=== PATIENT | female | born 1950 | race Caucasian/White ===

== ENCOUNTER → 2017-08-20 | Outpatient (CLI) | payer BC ==
--- NOTE | 2017-08-20 14:34 | DIAGNOSTIC IMAGING REPORT ---
RIGHT KNEE INCLUDING BILATERAL STANDING AP VIEWS (4 VIEWS) CLINICAL HISTORY: RIGHT KNEE PAIN COMPARISON: None DISCUSSION: Bilateral standing AP views reveal moderate to severe bilateral osteoarthritic changes with bilateral medial joint compartment narrowing. There is bilateral chondrocalcinosis. There are subchondral cystic changes present within the lateral tibial plateau. There are no acute fractures. There are prominent dorsal patellar spurs. IMPRESSION: 1. No acute fractures 2. Moderately advanced osteoarthritic changes. 3. Chondrocalcinosis Electronically signed by: Chip Lopez M.D. 08/20/2017 2:32 PM Dictated Date/Time: 08/20/2017 2:30 PM
== END | disposition home or self-care (01) ==
LOC: C.RDSM 14:30
PROVIDERS: ATTEND Physician Assistant
DX: M25.561 Pain in right knee (principal)

== ENCOUNTER → 2017-09-04 | Outpatient (CLI) | payer BC ==
--- NOTE | 2017-09-04 12:11 | DIAGNOSTIC IMAGING REPORT ---
C-SPINE ROUTINE 4 OR 5 VIEWS CLINICAL HISTORY: 67 years-old Female presenting with ANESTHESIA OF SKIN, bilateral hand numbness for one month. TECHNIQUE: Lateral, bilateral oblique, frontal, and open-mouth odontoid views of the cervical spine were obtained. COMPARISON: None. FINDINGS: Slight straightening of normal cervical lordosis likely positional. Vertebral bodies maintain normal height and alignment. Intervertebral disc heights preserved. Disc osteophyte complexes noted to varying degrees from C3-4 through C6-7. Mild posterior bony spurring noted at C4-5. No significant osseous neural foraminal narrowing is apparent. No radiographic evidence of fracture or subluxation. The lateral masses of C1 articulate normally with C2. No prevertebral soft tissue swelling. IMPRESSION: Mild multilevel degenerative changes with posterior bony spurring at C4-5. No radiographic evidence of osseous neural foraminal narrowing. Electronically signed by: Zeyad Pal M.D. 09/04/2017 12:09 PM Dictated Date/Time: 09/04/2017 12:08 PM
== END | disposition home or self-care (01) ==
LOC: C.RADBC 11:23
PROVIDERS: ATTEND Family Medicine
DX: R20.0 Anesthesia of skin (principal)

== ENCOUNTER → 2018-07-01 | Outpatient (CLI) | payer BC ==
--- NOTE | 2018-07-01 16:42 | DIAGNOSTIC IMAGING REPORT ---
R KNEE 4 OR MORE CLINICAL HISTORY: 68 years-old Female presenting with RIGHT KNEE PAIN. TECHNIQUE: Frontal view of the bilateral knees in standing position as well as sunrise, tunnel, and lateral views of the right knee were obtained. COMPARISON: 08/20/2017. FINDINGS: Frontal standing view of the bilateral knees demonstrates medial joint space loss bilaterally are in the right knee. Chondrocalcinosis is also evident bilaterally as well as osteophytosis in both medial and lateral compartments. No acute fracture is grossly evident in the left knee. The right knee demonstrates specifically tricompartmental exuberant osteophytosis. There is near krwi-os-[id number] appearance of medial joint space loss. No evidence of a knee joint effusion. No acute fracture or malalignment. No radiographic soft tissue abnormality. IMPRESSION: 1. Advanced tricompartmental degenerative changes of the right knee with similar though slightly less severe degenerative change in the left knee. This has minimally progressed in the left knee since the prior exam. 2. No acute osseous injury. Electronically signed by: Zeyad Pal M.D. 07/01/2018 4:41 PM Dictated Date/Time: 07/01/2018 4:39 PM
== END | disposition home or self-care (01) ==
LOC: C.RDSM 10:45
PROVIDERS: ATTEND Physician Assistant
DX: M25.561 Pain in right knee (principal)

== ENCOUNTER 2022-06-06 07:45 | Observation (INO) ==
--- NOTE | 2022-05-02 14:21 | PAT Medication Instructions ---
Medication Instructions Date of Service May 02, 2022 Home Medications Probiotic 1 cap PO QAM ibuprofen 200 mg tablet (Advil) 200 mg PO Q6H PRN multivitamin 1 tab PO QAM ASK your surgeon for instructions ibuprofen 200 mg tablet (Advil) 200 mg PO Q6H PRN DO NOT take the morning of surgery Probiotic 1 cap PO QAM multivitamin 1 tab PO QAM Other Notes NOTHING TO EAT OR DRINK AFTER MIDNIGHT. If you have any questions please call us at [phone] or [phone] or [phone] or [phone]
--- NOTE | 2022-05-04 10:30 | Anesthesiology Consultation ---
Date of Service May 04, 2022 Assessment & Plan (1) Encounter for pre-operative examination: COVID screening: Per assessment on 05/04: No known COVID-19 positive contacts or current COVID-19 related symptoms. Travel screen negative. Patient vaccinated. Patient Covid positive Early 03/2022 (+ home test); asymptomatic. Surgeon arranging preop COVID testing. Awaiting results. Chart Review Chart Review: Acceptable Risk for Surgery and Patient seen in Pre Admission Testing Teaching & Discussion Pre-Anesthesia Teaching/Discussion Notes: Instructed NPO after midnight before surgery,except medications with 15 cc of water. Medication instructions provided according to the PAT guidelines. History Surgery Operation Date: 06/06/22 12:35 Proposed Procedures p Left Total Knee Arthroplasty - Brenden De Los Santos MD Height/Weight Height: 5 ft Weight: 93.5 kg Allergies Allergy/AdvReac Type Severity Reaction Status Date / Time No Known Allergies Allergy Verified 05/02/22 11:50 Medications Home Medications Medication Instructions Recorded Confirmed Last Taken Probiotic 1 cap PO QAM 05/02/22 05/02/22 Unknown ibuprofen 200 mg tablet (Advil) 200 mg PO Q6H PRN 05/02/22 05/02/22 Unknown multivitamin 1 tab PO QAM 05/02/22 05/02/22 Unknown Past Medical History Medical History History of COVID-19 Early 03/2022 (+ home test); asymptomatic Osteoarthritis Sleep apnea CPAP (compliant) Exercise / Class Metabolic Activity II 4-5 Yardwork/Stairs/Walk up hill (one FS (no CP, no SOB)) Past Family History Family History Other No family history of adverse response to anesthesia Past Surgical History Surgical History History of x3 History of colonoscopy Past Anesthesia History No Hx of Anesthesia Complications and No Family Hx of Anesthesia Complications History of PONV No Hx of PONV and No Hx of Motion Sickness Social History Smoking Status: Never smoker Do You Dip or Chew Tobacco: No Hx Alcohol Use: Yes alcohol intake frequency: a few times a month Hx Substance Use: No substance use type: does not use Review of Systems Patient denies chest pain, shortness of breath, dyspnea on exertion, fever, chills, cough, wheezing, palpitations. Physical Exam Vital Signs VITALS BP 160/82 (BP typically 130s/70s, pt will continue to monitor at home and notify PCP if elevated) P 76 TEMP 98.7 SP02 98%RA RESP 16 PHYSICAL Full cervical extension range of motion. Full TMJ range of motion. TMD 3.5 finger breaths Mallampati Score 3 Dentition: 2 missing molars, + cap Lungs: clear throughout to auscultation Cardiac: regular rate and rhythm, no murmurs noted Spine: normal Carotid arteries: negative bruit Extremities: no edema Lab Results Anesthesia Preop Results Results Anesthesia Widget: WBC 7.76 K/uL (4.8-10.8) 05/04/22 Hgb 14.3 g/dL (12.0-16.0) 05/04/22 Hct 42.5 % (37-47) 05/04/22 Plt 277 K/uL (130-400) 05/04/22 Na 139 mmol/L (136-145) 05/04/22 K 3.5 mmol/L (3.5-5.1) 05/04/22 Cl 105 mmol/L (98-107) 05/04/22 CO2 27 mmol/L (21-32) 05/04/22 BUN 19 mg/dl (6-23) 05/04/22 Creat 0.82 mg/dl (0.6-1.2) 05/04/22 Glucose Level 111 mg/dl (70-99(Fasting)) H 05/04/22 PT 10.2 Seconds (9.0-12.0) 05/04/22 PTT 25.2 Seconds (21.0-31.0) 05/04/22 INR 1.0 (0.9-1.1) 05/04/22 HA1c 6.1 % (4.5-5.6) H 05/04/22 Urine Color Yellow 05/04/22 Urine Appearance Clear (Clear) 05/04/22 Urine pH 6.0 (4.5-7.5) 05/04/22 Urine Specific [place] 1.011 (1.000-1.030) 05/04/22 Urine Protein Negative (Negative) 05/04/22 Urine Glucose (UA) Negative (Negative) 05/04/22 Urine Ketones Negative (Negative) 05/04/22 Urine Blood Negative (Negative) 05/04/22 Urine Nitrite Negative (Negative) 05/04/22 Urine Bilirubin Negative (Negative) 05/04/22 Urine Urobilinogen Negative (Negative) 05/04/22 Urine Leukocyte Esterase 1+ (Negative) H 05/04/22 Urine WBC (Auto) 1-5 /hpf (0-5) 05/04/22 Urine RBC (Auto) 0-4 /hpf (0-4) 05/04/22 Urine Hyaline Casts (Auto) 1-5 /lpf (0-5) 05/04/22 Urine Epithelial Cells (Auto) >30 /lpf (0-5) H 05/04/22 Urine Bacteria (Auto) Negative (Negative) 05/04/22 Blood Type A Positive 05/04/22 Antibody Screen NEGATIVE 05/04/22 Testing Electrocardiogram Date: 05/04/22 NSR at 66bpm. Chest X-Ray Date: 05/04/22 FINDINGS: The cardiomediastinal and hilar silhouettes are within normal limits. No pneumothorax, pleural effusion, airspace consolidation or overt pulmonary edema. Degenerative changes of the shoulders and spine. IMPRESSION: No acute process.
--- NOTE | 2022-06-05 12:30 | History & Physical Report ---
Date of Service June 05, 2022 Assessment & Plan (1) Primary osteoarthritis of left knee: Plan: Treatment options discussed with the patient. She has failed conservative measures. She would like to proceed with surgical invention. Risks, benefits and alternatives to surgery including but not limited to infection, DVT, pain, stiffness, need for revision surgery, damage to blood vessels, damage to nerves, PE, , were discussed with the patient and they wish to proceed. Plan for left total knee arthroplasty scheduled for [facility] with Dr. De Los Santos on June 06. We will plan on aspirin 81 mg twice daily for 1 month postop for DVT prophylaxis. We will plan on outpatient PT. All questions answered. Patient will follow-up postop. History of Present Illness Chief Complaint: Left knee pain Primary Care Provider: Yakelin Little DO 72-year-old female with past medical history significant for sleep apnea who presents with ongoing left knee pain. Pain is interfering with her daily activities. She has failed conservative measures including injections and anti- inflammatories. She would like to proceed with knee replacement. Patient denies headaches, sweats, fevers, chills, double vision, blurred vision, cough, sore throat, dysphagia, chest pain, sob, wheezing, n/v/d/c, numbness, tingling, fatigue, urinary symptoms, mood disorders. ROS positive for left knee pain and stiffness. Allergies Allergy/AdvReac Type Severity Reaction Status Date / Time No Known Allergies Allergy Verified 05/02/22 11:50 Home Medications Medication Instructions Recorded Confirmed Type Probiotic 1 cap PO QAM 05/02/22 05/02/22 History ibuprofen 200 mg tablet (Advil) 200 mg PO Q6H PRN 05/02/22 05/02/22 History multivitamin 1 tab PO QAM 05/02/22 05/02/22 History Past Med/Surg History Medical History History of COVID-19 Early 03/2022 (+ home test); asymptomatic Osteoarthritis Sleep apnea CPAP (compliant) Surgical History History of x3 History of colonoscopy Family History Other No family history of adverse response to anesthesia Social History Smoking Status: Never smoker Second Hand Exposure: No; Hx Alcohol Use: Yes Hx Substance Use: No Preferred Language: Korean Communication Ability: Effective An/Ssn 2 4 Operator Required: No Beliefs That Will Affect Care: None marital status: Current Living Situation: Spouse current occupational status: retired Feels Safe at Home: Yes Assistive Devices: Contacts, CPAP and Glasses Review of Systems All systems reviewed & are unremarkable except as noted in HPI & below Physical Exam Constitutional: well developed and well nourished; no acute distress Eyes: PERRL, conjunctivae normal, anicteric sclerae ENMT: external ear and nose normal, oropharynx normal Neck: trachea midline, no thyromegaly Respiratory: normal respiratory effort, lungs clear to auscultation Cardiovascular: RRR, no murmur, no edema Musculoskeletal: Left knee: Varus alignment. Mild effusion. Tenderness medial joint line. She has crepitation with range of motion. Stable to valgus and varus stress test. Range of motion is painful and 15 to 70 degrees actively. Skin: no rashes, warm and dry Neurologic: patellar DTR's 2+ bilat, sensation intact Psychiatric: A+Ox3, euthymic affect Results & Data ([facility]) Diagnostic Findings Left knee: End-stage tricompartmental osteoarthritis left knee, [id number] medial compartment. There are periarticular osteophyte formation of all 3 compartments.
[~2022-06-06 07:45] MED LIST: ACETAMINOPHEN 500 MG TAB PO SCH; BUPIVACAINE 0.5 % 5 MG/1 ML PF 10ML VIAL ONE; CeleBREX 200 MG CAP PO SCH; EPINEPHrine INJ 1 MG/ML AMP ONE; FAMOTIDINE 20 MG TAB PO SCH; GABAPENTIN 300 MG CAP PO SCH; LR 500ML BOLUS, THEN 15ML/HR IV SCH; METOCLOPRAMIDE HCL 10 MG TABLET PO SCH; ROPIVACAINE 0.5% 5 MG/ML 30 ML VIAL ONE; ROPIVACAINE 0.5% HCL/PF 150 MG, BUPIVACAINE 0.75% MPF 20 ML, EPINEPHrine 30MG/30ML (OR ... INFIL SCH; TRANEXAMIC ACID 1,000 MG **IV Intra-op IV SCH; TRANEXAMIC ACID 1,000 MG **IV Pre-op IV SCH; ceFAZolin 2000MG 2,000 MG/15 ML SYR IV SCH; dexAMETHasone 4 MG TAB PO SCH
[2022-06-06] MEDS ORDERED: MEPERIDINE HCL 25 MG/ML CARP/VIAL IV PRN (08:36)
[2022-06-06] MEDS ORDERED: ATROPINE SULFATE 0.1 MG/ML 10ML SYR IV PRN (08:36)
[2022-06-06] MEDS ORDERED: ePHEDrine sulfate 50 MG/ML AMP IV PRN (08:36)
[2022-06-06] MEDS ORDERED: fentaNYL citrate 100 MCG/2 ML VIAL IV PRN (08:36)
[2022-06-06] MEDS ORDERED: PHENYLEPHRINE 100MCG/ML 5ML SYR IV PRN (08:36)
[2022-06-06] MEDS ORDERED: LABETALOL HCL IV 5 MG/ML 20ML IV PRN (08:36)
[2022-06-06] MEDS ORDERED: ONDANSETRON INJ 2 MG/ML 2 ML VIAL IV PRN ×2 (08:36→15:00)
[2022-06-06] MEDS ORDERED: HYDROmorphone INJ 1 MG/ML SYRINGE IV PRN (08:36)
[2022-06-06] MEDS ORDERED: MIDAZOLAM HCL 1 MG/ML 2ML VIAL ONE (10:31)
--- NOTE | 2022-06-06 10:35 | History & Physical Bridge Note ---
Date of Service June 06, 2022 History & Physical Bridge Note I have examined the patient, reviewed the History & Physical and in the interval since the performance of the History & Physical I have noted the following changes of clinical significance: no changes noted
[2022-06-06] MEDS ORDERED: PROPOFOL IV EMULSION 10 MG/ML 20 ML VIAL IV ONE (10:50)
[2022-06-06] MEDS ORDERED: LIDOCAINE 2% 2 ML VIAL/AMP(20MG/ML) INFIL ONE (10:50)
[2022-06-06] MEDS ORDERED: ORTHO JOINT ANESTHETIC ONE (10:51)
--- NOTE | 2022-06-06 13:43 | Operative Report ---
Post Operative Report Pre & Post Diagnosis Operation Date: 06/06/22 10:00 Pre-Op Diagnosis: Left Knee Osteoarthritis, obesity BMI 39.4 Post-Op Diagnosis: Left Knee Osteoarthritis, obesity BMI 39.4 I identified the patient and participated in the time-out.: Yes Procedure Operation Date: 06/06/22 10:00 Actual Procedures p Left Total Knee Arthroplasty(Left), application superficial wound VAC- Brenden De Los Santos MD Surgeon Brenden De Los Santos MD [employer] Internship Ken WHATLEY Estimated Blood Loss 10 Findings Consistent with Post-Op Diagnosis Specimens Bone cuts Drains 2 Hemovac Anesthesia Type MAC Spinal Regional Complications none Disposition Disposition: Recovery Room Indications 72-year-old female with severe bilateral knee osteoarthritis failed conservative management. Radiographs demonstrate severe bilateral tricompartmental osteoarthritis [id number] medial compartment bilaterally. Left knee has more stiff and painful knee. Patient presents for staged bilateral knee r eplacements. Description of Procedure Patient taken to the operating room the size under spinal MAC regional block anesthesia. Patient was placed supine on the operating table. A pneumatic tourniquet was placed about the obese left upper thigh. The left lower extremity was prepped and draped in sterile fashion. Knee exam demonstrated an obese thigh moderately obese knee with range of motion of 20 through 90 degrees with a substantial flexion contracture. No instability.. The leg was elevated exsanguinated with an Esmarch bandage and pneumatic tourniquet was raised to 350 millimeters of mercury. Skin incised sharply in longitudinal fashion. Subcutaneous flaps elevated. Incision was made through the medial retinaculum extending up in the mid third of the quadriceps tendon and down to the medial tibial tubercle. Intra-articular findings demonstrated tricompartmental osteoarthritis [id number] medial compartment bone loss and eburnated bone. The cooala [employer] triLOC [employer]lon total knee arthroplasty system was used. To expose the knee the infrapatellar fat pad was resected. The meniscal remnants and cruciate ligaments were resected. The anterior fat pad over the femur in the area of the anterior flange of the femoral component was resected. Lateral synovial bands release. The femur was exposed. An intramedullary drill hole was made into the canal. A guide valerio was placed. Distal femoral cutting guide was adjusted to resect a 5 degree valgus cut with 10 millimeters distal femur resected. The knee was extended and a subperiosteal peel lateral release was performed around the patella. Patella width was measured and width was reproduced using a freehand cut technique and a 33 x 9 symmetrical patella component. The 3 drill holes were made and the excess lateral facet was beveled off to prevent any impingement. Attention was taken back to the femur which was exposed with retractors and the femoral sizing guide was pinned in position. The drill holes were placed in 3 of external rotation to match epicondylar axis. Femur sized for a 4 component. The 4-in-1 cutting block was placed and then the anterior posterior and chamfer cuts are made. The tibia was then subluxed. The external tibial cutting guide was just to make a perpendicular cut to the long axis of the tibia below the most deficient bone loss side. A lamina burlap spreader was used and the flexion extension gaps were balanced. This required a medial and posterior medial release on the tibia. All posterior osteophytes removed. All meniscal remnants were resected. The tibia exposed and the trial tibial component size 3 was externally rotated in line with the tibial tubercle and pinned in position. The punch for stem was used. The notch cutting device was centered appropriately and the femoral notch cut was made. The femoral trial was inserted. Trial tibial inserts were placed and size 11 gave balanced ligaments through flexion and extension. Patella tracking was assessed. The patella tracked centrally.. The trial components were then removed and the orthomix anesthetic cocktail was injected per protocol. The knee was then copiously irrigated with pulsatile lavage saline solution. Final components were then cemented with Refobacin cement. Final components were [place] triathlon size 4 left posterior stabilized femoral component, size 3 universal tibial baseplate, 12 x 50 mm cemented stem on tibia, X.3 polyethylene size 11 tibial bearing insertposterior stabilized, X.3 symmetrical patella size 33 x 9. After the cement cured the Betadine soak was used for 3 minutes. Further pulsatile lavage irrigation was then performed and 2 Hemovac drains were brought out laterally. The quadriceps tendon and medial retinaculum were closed with figure of 8 #1 Vicryl sutures. The knee was taken through full range of motion and the repair was secure. Knee range of motion was 0 through 120. The subcutaneous tissues were closed with 2-0 Vicryl sutures. Skin was closed with kaela. A lin and Acticoat superficial wound VAC was applied. The patient tolerated the procedure well. Ken WHATLEY was my physician construction assistant who participated as hotel assistant manager and was involved in all aspects of the procedure including patient positioning prepping and draping,leg positioning ,soft tissue retraction and instrument management and participated in the closing and will participate in postoperative care of the patient. The patient tolerated the procedure well. I attest to the content of the Intraoperative Record and any orders documented therein. Any exceptions are noted below.
--- NOTE | 2022-06-06 14:40 | Anesthesiology Progress Note ---
Date of Service June 06, 2022 Anesthesia Post Procedure Vital Signs Vital Signs: Temp Pulse Pulse Resp BP Pulse Ox O2 Del Method 06/06/22 14:35 36.9 C 87 20 140/94 96 Room Air 06/06/22 14:25 83 20 154/70 H 96 Room Air 06/06/22 14:15 82 15 136/77 99 Oxymask 06/06/22 14:08 37.1 C 90 18 153/76 H 98 Oxymask 06/06/22 08:10 36.8 C 87 20 189/80 H 98 Room Air 06/06/22 08:10 CPAP O2 Flow Rate 06/06/22 14:35 06/06/22 14:25 06/06/22 14:15 6 06/06/22 14:08 6 06/06/22 08:10 06/06/22 08:10 Pain Intensity Left Knee: Pain Intensity: 2 Transfer of Care Handoff Completed per policy Notes Mental Status: alert / awake / arousable Patient Amnestic to Procedure: Yes Nausea / Vomiting: adequately controlled Pain: adequately controlled Airway Patency, RR, SpO2: stable & adequate BP & HR: stable & adequate Hydration State: stable & adequate Neuraxial Anesthesia: was administered and sensory block is resolving Anesthetic Complications: no major complications apparent and Pt Satisfied with anesthetic care
--- NOTE | 2022-06-06 14:56 | XRay Report ---
LEFT KNEE 2 VIEWS History: Left total knee arthroplasty. Degenerative arthritis. Postop. FINDINGS: The patient is status post a left total knee arthroplasty. The hardware is intact. No fract ure or dislocation. Skin kaela and surgical drains are in place. IMPRESSION: Left total knee arthroplasty. No evidence for hardware complication. ACT 112: Negative or not required by law. Electronically signed by: Kelvin Oro M.D. 06/06/2022 2:54 PM
[2022-06-06] MEDS ORDERED: MAGNESIUM HYDROXIDE SUSP 30 ML UDC PO PRN (15:00)
[2022-06-06] MEDS ORDERED: NALOXONE HCL 0.4 MG/1 ML VIAL/CARP IV PRN (15:00)
[2022-06-06] MEDS ORDERED: bisacodyL 10 MG SUPP PR PRN (15:00)
[2022-06-06] MEDS ORDERED: METOCLOPRAMIDE HCL INJ 5 MG/ML 2 ML VIAL IV PRN (15:00)
[2022-06-06] MEDS ORDERED: HYDROmorphone INJ 0.5 MG/0.5 ML SYR IV PRN (15:00)
[2022-06-06] MEDS ORDERED: oxyCODONE HCL IR 5 MG TAB (IMMEDIATE RELEASE) PO PRN (15:00)
[2022-06-06] MEDS: SODIUM CHLORIDE 0.9% 1000ML 1,000 ML IV SCH (15:45)
[2022-06-06] MEDS: ceFAZolin 2000MG 2,000 MG/15 ML SYR IV SCH (20:15)
[2022-06-06] MEDS: DOCUSATE SODIUM 100 MG CAP PO SCH (20:16)
[2022-06-06] MEDS: CeleBREX 200 MG CAP PO SCH (20:16)
[2022-06-06] MEDS: ASPIRIN 81 MG ECTAB PO SCH (20:16)
[2022-06-06] MEDS ORDERED: SENNA 8.6 MG TAB PO SCH (21:00)
[2022-06-06] MEDS: ACETAMINOPHEN 500 MG TAB PO SCH (22:07)
[2022-06-07] MEDS: SODIUM CHLORIDE 0.9% 1000ML 1,000 ML IV SCH (01:32)
[2022-06-07] MEDS: ceFAZolin 2000MG 2,000 MG/15 ML SYR IV SCH (05:17)
[2022-06-07] MEDS: ACETAMINOPHEN 500 MG TAB PO SCH (05:17)
[2022-06-07 06:08] LABS: Hematocrit (blood only) 34.4 % (34.1-44.9); Hemoglobin 11.8 g/dl (12.0-16.0); Mean Corpuscular Hemoglobin 28.6 pg (25.0-34.0); Mean Corpuscular Hgb Conc 34.3 g/dL (32.0-36.0); Mean Corpuscular Volume 83.5 fL (80.0-100.0); Mean Platelet Volume 9.8 fL (9.4-12.3); Platelet Count 268 K/uL (130-400); RDW Standard Deviation 36.7 fL (36.4-46.3); Red Blood Count 4.12 M/uL (3.93-5.22)
[2022-06-07 06:09] LABS: BUN Creatinine Ratio 22.8 (10-20); Calcium 8.5 mg/dl (8.5-10.1); Creatinine Clr Calc Pharmacy 66.9 ml/min; Est GFR (African American) 87.9 ml/min; Est GFR (Non-African American) 75.8 ml/min
--- NOTE | 2022-06-07 08:27 | Orthopedic Progress Note ---
Date of Service June 07, 2022 Assessment & Plan (1) Primary osteoarthritis of left knee: Plan: POD 1 s/p Left TKA PT/OT protocols. WBAT. DVT prophylaxis - ASA po bid, SCD's, NITA's Pain management as written. Leukocytosis - Pt asymptomatic. Likely secondary to operative stress/preop steroids. DC Planning - Pt planning for outpt PT upon DC. Admission and Anticipated Discharge Date Admission Date: June 06, 2022 Subjective POD 1 Pt sitting at edge of bed. No complaints this AM. Pain controlled. Physical Exam Physical Exam: Dressings are C/D/I. Calves are soft, NT. NV intact. Toes mobile. Good DF/PF of the left foot. HV drainage 100ml from the previous shift. Results & Data ([facility]) Vital Signs (Past 12 Hours) Vital Signs Temp Pulse Resp BP Pulse Ox O2 Del Method 06/07/22 06:10 36.6 C 64 15 145/73 H 97 Room Air 06/07/22 02:22 36.9 C 66 16 158/78 H 94 Room Air 06/06/22 22:55 36.7 C 64 16 122/76 94 Room Air Laboratory Results Laboratory Results WBC 20.40 K/ul (4.8-10.8) H 06/07/22 05:34 RBC 4.12 M/uL (3.93-5.22) 06/07/22 05:34 Hgb 11.8 g/dl (12.0-16.0) L 06/07/22 05:34 Hct 34.4 % (34.1-44.9) 06/07/22 05:34 MCV 83.5 fL (80.0-100.0) 06/07/22 05:34 MCH 28.6 pg (25.0-34.0) 06/07/22 05:34 MCHC 34.3 g/dL (32.0-36.0) 06/07/22 05:34 RDW Std Deviation 36.7 fL (36.4-46.3) 06/07/22 05:34 RDW Coeff of Festus 12.0 % (11.5-14.5) 06/07/22 05:34 Plt Count 268 K/uL (130-400) 06/07/22 05:34 MPV 9.8 fL (9.4-12.3) 06/07/22 05:34 Sodium 138 mmol/L (136-145) 06/07/22 05:34 Potassium 4.0 mmol/L (3.5-5.1) 06/07/22 05:34 Chloride 106 mmol/L (98-107) 06/07/22 05:34 Carbon Dioxide 26 mmol/L (21-32) 06/07/22 05:34 Anion Gap 6 (3-11) 06/07/22 05:34 BUN 18 mg/dl (6-23) 06/07/22 05:34 Creatinine 0.79 mg/dl (0.6-1.2) 06/07/22 05:34 Est Cr Clr Drug Dosing 66.9 ml/min 06/07/22 05:34 Est GFR ( Amer) 87.9 ml/min 06/07/22 05:34 Est GFR (Non-Af Amer) 75.8 ml/min 06/07/22 05:34 BUN/Creatinine Ratio 22.8 (10-20) H 06/07/22 05:34 Glucose 156 mg/dl (70-99(Fasting)) H 06/07/22 05:34 Calcium 8.5 mg/dl (8.5-10.1) 06/07/22 05:34 SARS-CoV-2, RNA, NAAT NEGATIVE (NEGATIVE) 06/06/22 07:58 Impressions Knee X-Ray 06/06/22 14:11 LEFT KNEE 2 VIEWS History: Left total knee arthroplasty. Degenerative arthritis. Postop. FINDINGS: The patient is status post a left total knee arthroplasty. The hardware is intact. No fracture or dislocation. Skin kaela and surgical drains are in place. IMPRESSION: Left total knee arthroplasty. No evidence for hardware complication. ACT 112: Negative or not required by law. Electronically signed by: Kelvin Oro M.D. 06/06/2022 2:54 PM
[2022-06-07] MEDS: CeleBREX 200 MG CAP PO SCH (08:46)
[2022-06-07] MEDS: ASPIRIN 81 MG ECTAB PO SCH (08:46)
[2022-06-07] MEDS: DOCUSATE SODIUM 100 MG CAP PO SCH (08:46)
[2022-06-07] MEDS ORDERED: ADVANCED PROBIOTIC 1250 MG CAPSULE PO SCH (09:00)
[2022-06-07] MEDS ORDERED: MULTIVITAMIN TAB PO SCH ×2 (09:00)
--- NOTE | 2022-06-07 14:47 | Discharge Summary ---
Date of Service June 07, 2022 Admission HPI Per Admitting Provider 72-year-old female with past medical history significant for sleep apnea who presents with ongoing left knee pain. Pain is interfering with her daily activities. She has failed conservative measures including injections and anti- inflammatories. She would like to proceed with knee replacement. Patient denies headaches, sweats, fevers, chills, double vision, blurred vision, cough, sore throat, dysphagia, chest pain, sob, wheezing, n/v/d/c, numbness, tingling, fatigue, urinary symptoms, mood disorders. ROS positive for left knee pain and stiffness. Admission Exam Per Admitting Provider Constitutional: well developed and well nourished; no acute distress Eyes: PERRL, conjunctivae normal, anicteric sclerae ENMT: external ear and nose normal, oropharynx normal Neck: trachea midline, no thyromegaly Respiratory: normal respiratory effort, lungs clear to auscultation Cardiovascular: RRR, no murmur, no edema Musculoskeletal: Left knee: Varus alignment. Mild effusion. Tenderness medial joint line. She has crepitation with range of motion. Stable to valgus and varus stress test. Range of motion is painful and 15 to 70 degrees actively. Skin: no rashes, warm and dry Neurologic: patellar DTR's 2+ bilat, sensation intact Psychiatric: A+Ox3, euthymic affect Principal Diagnosis Left knee osteoarthritis Discharge Exam Dressings are C/D/I. Calves are soft, NT. NV intact. Toes mobile. Good DF/PF of the left foot. HV drainage 100ml from the previous shift. Constitutional well developed and well nourished; no acute distress Discharge Data Allergies Allergy/AdvReac Type Severity Reaction Status Date / Time No Known Allergies Allergy Verified 06/06/22 08:07 Consultations 06/06/22 05:00 Consult Hospitalist Routine Procedures Performed Operation Date: 06/06/22 10:00 Actual Procedures p Left Total Knee Arthroplasty(Left) - Brenden De Los Santos MD Ordered Studies 06/06/22 05:00 US - OR guided needle placemen Routine Hospital Course (1) Primary osteoarthritis of left knee: POD 1 s/p Left TKA PT/OT protocols. WBAT. DVT prophylaxis - ASA po bid, SCD's, NITA's Pain management as written. Leukocytosis - Pt asymptomatic. Likely secondary to operative stress/preop steroids. DC Planning - Pt planning for outpt PT upon DC. Lab Results 06/06/22 06/07/22 06/07/22 Range/Units 07:58 05:34 05:34 WBC 20.40 H (4.8-10.8) K/ul RBC 4.12 (3.93-5.22) M/uL Hgb 11.8 L (12.0-16.0) g/dl Hct 34.4 (34.1-44.9) % MCV 83.5 (80.0-100.0) fL MCH 28.6 (25.0-34.0) pg MCHC 34.3 (32.0-36.0) g/dL RDW Std Deviation 36.7 (36.4-46.3) fL RDW Coeff of Festus 12.0 (11.5-14.5) % Plt Count 268 (130-400) K/uL MPV 9.8 (9.4-12.3) fL Sodium 138 (136-145) mmol/L Potassium 4.0 (3.5-5.1) mmol/L Chloride 106 (98-107) mmol/L Carbon Dioxide 26 (21-32) mmol/L Anion Gap 6 (3-11) BUN 18 (6-23) mg/dl Creatinine 0.79 (0.6-1.2) mg/dl Est Cr Clr Drug Dosing 66.9 ml/min Est GFR ( Amer) 87.9 ml/min Est GFR (Non-Af Amer) 75.8 ml/min BUN/Creatinine Ratio 22.8 H (10-20) Glucose 156 H (70-99(Fasting)) mg/dl Calcium 8.5 (8.5-10.1) mg/dl SARS-CoV-2, RNA, NAAT NEGATIVE (NEGATIVE) Total Time Total Time Spent Total Time Spent (In Minutes): 20 Discharge Plan Discharge Items Patient Disposition: Home - Self-Care Reason For Visit: Left Knee Osteoarthritis Discharge Diagnosis: Left Knee Osteoarthritis Activity: Per Instructions section Weightbearing: Left weightbearing Weightbearing Comment: as tolerated with walker Non-emergency contact: Surgeon Call non-emergency contact if: you have any medication questions, your pain is worsening, your temperature is above 101.5, your wound has increased redness and your wound has increased drainage Follow-up/Referrals: Yakelin Little DO [Primary Care Provider] - Brenden De Los Santos MD [Surgeon] - (Follow up with Dr. De Los Santos in 2 weeks from the day of your surgery for your first post operative checkup) Diet: Regular Addtl Attending Provider Instructions: ACTIVITY RECOMMENDATIONS: SELF CARE INSTRUCTIONS AFTER TOTAL KNEE REPLACEMENT A. You may need to continue a physical therapy program after discharge from the hospital. There are several options available to you. Your doctor will assist you in selecting the best one for you. 1. An out-patient facility 2 to 3 times a week for therapy or home therapy. 2. Continue working on all exercises taught to you in the hospital. Your goals should be to increase bending of your knee to 90 degrees and beyond and to fully straighten your knee. B. You may progress at your own pace from walking with a walker or crutches to a cane; then to no assistive devices. C. Make walking a part of your daily routine. Be up as much as comfortable with rest periods throughout the day. Rest with leg elevation is very important. Use the ice wrap frequently for the first 3-4 weeks. D. There are no restrictions on activities. You may ride in a car, shop, participate in lunchroom attendant and all social activities. E. Wear the long elastic stockings (NITA hose) 20 hours a day for 2 weeks after surgery. They can be removed several times a day for laundering and for a bath. F. You may shower, no tub baths until cleared by your doctor. SPECIAL CARE INSTRUCTIONS: VERY IMPORTANT TO READ AND REVIEW A. There are a few signs you need to watch for after you are home. Call [facility] if you notice any of the followin. Increased severe knee pain. Some pain is expected especially when you exercise. 2. Increased swelling in your leg or knee; pain or swelling of the calf muscle in either lower leg. 3. Any fluid drainage from the incision. 4. Shortness of breath or chest pain. B. Please call [facility] at if you have any concerns or questions about your operation or recovery. The doctor or his nurse will return your call promptly. C. You must take antibiotics before dental work, bladder, bowel or other surgery. Your doctor will provide you with a permanent care to carry describing this precaution. IMPORTANT: * REMEMBER TO TAKE ASPIRIN, 81 MG, TWICE DAILY FOR 4 WEEKS UNLESS OTHERWISE DIRECTED. THIS IS YOUR BLOOD THINNER. * CALL IF INCREASED PAIN, REDNESS, DRAINAGE OR FEVER GREATER THAT 101. * WEAR NITA HOSE 20 HOURS PER DAY FOR 2 WEEKS. * LOIS Dressing - This is a large suction dressing covering your incision. This will help pull any excess drainage from the wound and allow your incision to heal properly. You may shower with this if you can keep the unit outside of the shower. If any bleeding or leakage is noted please call your doctor's office. This will remain on your incision for 7 days and then should be removed. This can be done yourself or by the home nursing staff if applicable. The entire unit is disposable once removed. Once removed, keep incision clean and dry. If redness or drainage is noted, please call your surgeon. . FOLLOW UP VISIT: If appointment is not already scheduled: Please call [facility] to make a follow-up appointment for 2 weeks after your surgery at . Stand-Alone Forms: [facility] [employer] Smoking Cessation Medications and DC Order Prescriptions: New celecoxib [Celebrex] 200 mg Capsule 200 mg PO BID 14 Days Qty: 28 0RF aspirin 81 mg Tablet,Delayed Release (Dr/Ec) 81 mg PO BID 30 Days Qty: 60 0RF acetaminophen [Tylenol Extra Strength] 500 mg Tablet 1,000 mg PO Q8 14 Days Qty: 84 0RF polyethylene glycol 3350 [Miralax] 17 gram powder in packet 17 g PO DAILY PRN (Reason: constipation) Qty: 5 0RF oxycodone 5 mg tablet 5 mg PO Q4H MDD 6 PRN (Reason: pain) Qty: 30 0RF Continued multivitamin Tablet 1 tab PO QAM Probiotic 1 cap PO QAM Discontinued ibuprofen [Advil] 200 mg Tablet 200 mg PO Q6H PRN (Reason: Pain) Discharge Orders: Discharge Order (Routine); Ordered 06/07/22 Ordered By: Marco A Henning Admission Data Admit Date/Time: 06/06/22 14:11 Attending Provider: Brenden De Los Santos Admit Provider: Brenden De Los Santos Primary Care Provider: Yakelin Little Other Providers: Renny Ramirez Other Interventions: Discharge Summary Assessment (RN) Last Done: 06/07/22 10:28
== END 2022-06-07 12:33 | disposition home or self-care (01) ==
LOC: 3E 07:45 → ASU 07:45 → SUATTDRO 14:11